=== PATIENT | female | born 1935 | race Caucasian/White ===

== ENCOUNTER 2019-09-21 16:01 | Emergency (ER) | payer MEDICARE, BC ==
[2019-09-21 16:28] VITALS: BP 155/91
--- NOTE | 2019-09-21 17:01 | UC ---
Shoulder Pain HPI - HPI Summary HPI Summary: 84-year-old female who was walking down her driveway to get mail today when she slipped and fell landing on her left shoulder. She denies hitting her head and denies any neck pain. She complains pain to the proximal shoulder, no difficulty breathing. - History of Current Complaint Chief Complaint: UCUpperExtremity Stated Complaint: ARM INJURY Time Seen by Provider: 09/21/19 16:54 Hx Obtained From: Patient ?: No Onset/Duration: Sudden Onset Timing: Constant Severity Initially: Moderate Severity Currently: Mild Location Of Pain: Is Discrete @ Pain Intensity: 8 Character: Dull, Aching Aggravating Factor(s): Movement, Lifting, Internal Rotation, External Rotation Alleviating Factor(s): Rest Associated Signs And Symptoms: Positive: Negative - Allergies/Home Medications Allergies/Adverse Reactions: Allergies Allergy/AdvReac Type Severity Reaction Status Date / Time meperidine Allergy Altered Verified 09/21/19 17:41 Mental Status morphine Allergy Altered Verified 09/21/19 17:41 Mental Status promethazine Allergy Altered Verified 09/21/19 17:41 Mental Status ALL ANTI-INFLAMMATORIES Allergy CHEMICAL Uncoded 09/05/13 14:31 DURAN TO STOMACH-HEMORRAGE Home Medications: Home Medications Metoprolol Succinate [Kapspargo Sprinkle] 50 mg PO BID 09/21/19 [History Confirmed 09/21/19] PMH/Surg Hx/FS Hx/Imm Hx Previously Healthy: Yes Cardiovascular History: Hypertension - Surgical History Surgical History: Yes Surgery Procedure, Year, and Place: 02/2012 [facility] FOR SUBDURAL HEMATOMA, [facility]. 1977 HYSTERECTOMY, [facility]. 1982 VAGOTOMY, [facility]. 1983 AND 2004 LEFT HIP REPLACEMENT X 2, [facility] - Family History Known Family History: Positive: Non-Contributory - Social History Occupation: Retired Alcohol Use: None Substance Use Type: None Smoking Status (MU): Former Smoker Review of Systems All Other Systems Reviewed And Are Negative: Yes Musculoskeletal: Positive: Other: - Pain left shoulder. Is Patient Immunocompromised?: No Physical Exam Triage Information Reviewed: Yes Appearance: Well-Appearing, No Pain Distress, Well-Nourished Vital Signs: Initial Vital Signs Temp 99.6 F 09/21/19 16:21 Pulse 74 09/21/19 16:21 Resp 16 09/21/19 16:21 BP 155/91 09/21/19 16:21 Pulse Ox 97 09/21/19 16:21 Vital Signs Reviewed: Yes Eyes: Positive: Conjunctiva Clear Neck: Positive: Supple, Nontender - C-spine nontender, No Lymphadenopathy Shoulder Course/Dx - Course Course Of Treatment: Left shoulder x-ray:FINDINGS: The bones are osteopenic and in normal alignment on a couple views there is a faint radiolucent line extending through the proximal humerus in the region of the surgical neck suggestive of a nondisplaced fracture. There is a focal area of calcification adjacent to the superolateral aspect of the humeral head consistent with calcific tendinitis. 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 IMPRESSION: PROBABLE NONDISPLACED FRACTURE OF THE PROXIMAL HUMERUS. An arm sling was applied. The patient is to follow-up with the orthopedist next Thursday or Thursday. She is going to [place] for a wedding tomorrow and states she will not be able to see an orthopedist before then. She can take extra strength Tylenol for pain and apply ice intermittently. - Differential Dx/Diagnosis Provider Diagnosis: Fracture, humerus Discharge ED - Sign-Out/Discharge Documenting (check all that apply): Patient Departure All imaging exams completed and their final reports reviewed: Yes - Discharge Plan Condition: Fair Disposition: HOME Patient Education Materials: Proximal Humerus Fracture (ED) Referrals: Dana Nassar MD [Primary Care Provider] - Kenneth Cade MD [Medical Doctor] - Additional Instructions: Apply ice intermittently over the next day or 2, extra strength Tylenol for pain , follow-up with the orthopedist as soon as you get back into town. - Billing Disposition and Condition Condition: FAIR Disposition: Home
== END 2019-09-21 18:10 | disposition home or self-care (01) ==
LOC: UCEAST 16:01
DX: S42.292A Other displaced fracture of upper end of left humerus, initial encounter for closed fracture (principal); I10 Essential (primary) hypertension; W01.0XXA Fall on same level from slipping, tripping and stumbling without subsequent striking against object, initial encounter; Y92.9 Unspecified place or not applicable; Z88.5 Allergy status to narcotic agent; Z88.8 Allergy status to other drugs, medicaments and biological substances; Z79.899 Other long term (current) drug therapy; Z87.891 Personal history of nicotine dependence
CPT/HCPCS: 99211; G0463